=== PATIENT | male | born 1965 ===

== ENCOUNTER 2024-02-22 04:19 | Day surgery (SDC) | payer OTHER, BC ==
[2024-02-18 15:15] VITALS: BMI 35.9
[2024-02-22] MEDS ORDERED: oxyCODONE HCL 5 MG TABLET PO PRN ×2 (08:30→13:43)
[2024-02-22] MEDS ORDERED: ONDANSETRON 4 MG/2 ML VIAL IVPUSH PRN (08:30)
[2024-02-22] MEDS ORDERED: PROMETHAZINE HCL 25 MG/1 ML VIAL IVPB PRN (08:30)
[2024-02-22] MEDS ORDERED: LACTATED RINGERS SOLUTION 1,000 ML IV SCH (08:30)
[2024-02-22] MEDS ORDERED: PROPOFOL 40 ML ONE (11:43)
[2024-02-22] MEDS ORDERED: MIDAZOLAM HCL 2 MG/2 ML SINGLE DOSE VIAL ONE (11:43)
[2024-02-22] MEDS ORDERED: LIDOCAINE HCL/PF 2% SDV 5ML VIAL ONE (11:43)
[2024-02-22] MEDS ORDERED: DEXAMETHASONE SOD PHOSPHATE 4 MG/1 ML VIAL ONE (12:55)
[2024-02-22] MEDS ORDERED: ceFAZolin SODIUM 1 GM VIAL ONE (12:55)
[2024-02-22] MEDS ORDERED: ONDANSETRON 4 MG/2 ML VIAL ONE (12:55)
[2024-02-22] MEDS ORDERED: KETOROLAC TROMETHAMINE 30 MG/1 ML VIAL ONE (12:55)
[2024-02-22] MEDS: ceFAZolin SODIUM 1 GM VIAL IVPB ONE (12:58)
[2024-02-22] MEDS ORDERED: ACETAMINOPHEN INJECTION 100 ML ONE (13:54)
[2024-02-22] MEDS: ACETAMINOPHEN 1000 MG/100 ML BAG IVPB ONE (14:07)
[2024-02-22 14:39] VITALS: TEMP 97.8
[2024-02-22 15:38] VITALS: BP 140/84; PULSE 70; RESP 20
== END 2024-02-22 15:49 | disposition home or self-care (01) ==
LOC: JASU-SURG 04:19
PROVIDERS: ATTEND Urology
PROC: 0T778DZ Dilation of Left Ureter with Intraluminal Device, Via Natural or Artificial Opening Endoscopic (ICD-10-PCS; principal; 2024-02-22 12:00)
PROC: 0TF38ZZ Fragmentation in Right Kidney Pelvis, Via Natural or Artificial Opening Endoscopic (ICD-10-PCS; 2024-02-22 12:00)
DX: N13.5 Crossing vessel and stricture of ureter without hydronephrosis (principal); N20.0 Calculus of kidney
CPT/HCPCS: 76000-TC-FY; 94760; C1758; J0131

== ENCOUNTER 2024-03-22 04:24 | Day surgery (SDC) | payer OTHER, BC ==
[2024-03-17 16:58] VITALS: BMI 37.2
[2024-03-22] MEDS ORDERED: ONDANSETRON 4 MG/2 ML VIAL IVPUSH PRN (14:52)
[2024-03-22] MEDS ORDERED: oxyCODONE HCL 5 MG TABLET PO PRN (14:52)
[2024-03-22] MEDS ORDERED: LACTATED RINGERS SOLUTION 1,000 ML IV SCH (15:00)
[2024-03-22] MEDS ORDERED: PROPOFOL 20 ML ONE ×2 (15:04→15:12)
[2024-03-22] MEDS: ceFAZolin SODIUM 1 GM VIAL IVPB ONE (15:19)
[2024-03-22 16:50] VITALS: BP 140/90; PULSE 74; RESP 18; TEMP 98
== END 2024-03-22 17:15 | disposition home or self-care (01) ==
LOC: JASU-SURG 04:24
PROVIDERS: ATTEND Urology
PROC: 0TC78ZZ Extirpation of Matter from Left Ureter, Via Natural or Artificial Opening Endoscopic (ICD-10-PCS; principal; 2024-03-22 14:00)
PROC: 0T778DZ Dilation of Left Ureter with Intraluminal Device, Via Natural or Artificial Opening Endoscopic (ICD-10-PCS; 2024-03-22 14:00)
PROC: 0T578ZZ Destruction of Left Ureter, Via Natural or Artificial Opening Endoscopic (ICD-10-PCS; 2024-03-22 14:00)
DX: N13.5 Crossing vessel and stricture of ureter without hydronephrosis (principal); N20.1 Calculus of ureter
CPT/HCPCS: 76000-TC-FY; 94760; C1758